=== PATIENT | male | born 1945 | race Caucasian/White ===

== ENCOUNTER 2024-04-18 09:07 | Outpatient (CLI) | payer MEDICARE, OTHER, SELFPAY ==
--- NOTE | 2024-04-18 09:21 | ECG_ITS ---
Test Date: 2024-04-18 09:39:13 Measurements Intervals [place] Rate: 49 P: 62 VA: 187 QRS: 73 QRSD: 104 T: 66 QT: 418 QTc: 380 Interpretive Statements SINUS BRADYCARDIA No previous ECG available for comparison Electronically Signed On 04-21-2024 15:01:20 [employer] by Marshal Diaz M.D.
== END 2024-04-18 09:08 | disposition home or self-care (01) ==
PROVIDERS: PCP Physician Assistant Medical; Visit Provider Surgery
DX: I10 Essential (primary) hypertension (principal); Z01.818 Encounter for other preprocedural examination; K40.90 Unilateral inguinal hernia, without obstruction or gangrene, not specified as recurrent
CPT/HCPCS: 36415; 86850; 86900; 86901; 93005

== ENCOUNTER 2024-04-25 00:36 | Day surgery (SDC) | payer MEDICARE, OTHER, SELFPAY ==
[2024-04-10 14:40] VITALS: BMI 26.4
--- NOTE | 2024-04-10 15:11 | PC.NURSE ---
Report to the Outpatient Waiting Room, entrance under the green pavilion located off [facility], at time __6:00AM on date __04/25/24 . Planned Procedure Time: __7:30AM .? Time changes happen often and if your time is changed the preop area will call you the afternoon before. - You and your visitor will be asked to self-screen and do not enter if you have any COVID symptoms. Please call surgeon if you need to reschedule. - A mask is optional within the hospital at this time. Patients may have clear liquids (water, carbonated beverages, clear teas, apple juice) until 3 hours prior to surgery (4:30AM)with a maximum of 20 ounces. - No food from midnight until time of surgery and no smoking. This includes no chewing gum, candy or mints. Take only the following medications with a SIP of water on the morning of surgery: METOPROLOL, MORNING EYE DROPS DO NOT STOP ANY OF YOUR OTHER PRESCRIPTION MEDICATIONS PRIOR TO SURGERY EXCEPT THE FOLLOWING Medications to discontinue per physician ____HOLD ALL VITAMINS/SUPPLEMENTS 3 DAYS PRE-OP PER ANESTHESIA Date to take last dose____04/21/24 Please no make-up, nail lithuanian, hairspray, perfume, deodorant, or body powder the day of surgery.? No jewelry (including any body piercings) or valuables the day of surgery, leave them at home.? Please take a shower or bath the night before, or the morning of, surgery with an antibacterial soap.? Wear comfortable, loose fitting clothing.? Children are encouraged to wear pajamas. - Jewelry must be removed prior to entering the operating room.? Rings and piercings that are not removed may be cut off. - The hospital will not accept responsibility for valuables.? - Please leave all valuables, including medications, at home the day of surgery. If you are going home after surgery, a licensed team driver must drive you home.? - NO public transportation without another adult if you receive anesthesia. - We recommend that an adult stay with you for 24 hours following discharge. - We also recommend that you do not drive, make important decision, drink alcoholic beverages, or take any drugs that were not prescribed by your health care provider for at least 24 hours after your discharge time. Follow any additional instructions given to you from your surgeon. Telephone instructions given to ___PATIENT and asked if any additional questions and then verbalized understanding. Patient advised to call surgeon office or pre surgery nurse liaison [phone] if any additional questions.
[2024-04-25] VITALS (12 sets, daily range): BP systolic 103–172; BP diastolic 53–111; PULSE 50–83; RESP 10–18; TEMP 36.1; O2SAT 97–100
[2024-04-25] MEDS: LACTATED RINGERS 1,000 ML 30 ML IV CONT ×3 (06:40→11:40)
[2024-04-25] MEDS: ACETAMINOPHEN 500 MG TABLET 1000 MG PO (06:50)
[2024-04-25] MEDS: KETOROLAC 15 MG/ML VIAL (*BKC) IV PUSH (06:50)
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
--- NOTE | 2024-04-25 07:25 | WPDHPUPDATE1 ---
History and Physical Update Update Date/Time: 04/25/24 07:25 History and Physical has been reviewed, including an updated exam of the patient. There are NO changes in the patient's condition. Risks, benefits, and alternatives have been discussed and questions answered. Patient agrees to proceed with procedure.
[2024-04-25] MEDS: ceFAZolin 2 GM/D5W 50 ML 2 GM/50 ML BAG IVPB (07:34)
[2024-04-25] MEDS: LIDO 1%/EPINEPHRINE 1:100,000 50 ML VIAL 30 ML INFILTRATE (08:01)
[2024-04-25] MEDS: BUPivacaine HCL 0.5% 10 ML AMP 30 ML INFILTRATE (08:01)
--- NOTE | 2024-04-25 09:46 | P.OP_ITS ---
Procedure Note - Detailed Date of Procedure 04/25/24 Pre-op Diagnosis Reducible left inguinal hernia Post-op Diagnosis Same Procedure Performed Robotic assisted laparoscopic left inguinal hernia repair with Bard 3D mid weight mesh. Surgeon Dorian La MD Geology Faculty Member SORIN [facility] Anesthesia General Indications Patient is a 78-year-old gentleman who many many years ago had 8 open right inguinal hernia repair. He has not had any problems with that side. He most recently complained of having a bulge in increasing pain in the left groin region. On exam he was found have reducible left inguinal hernia. He presents now for a robotic assisted laparoscopic left inguinal hernia repair with Bard 3D mid weight mesh. Findings Patient had a large reducible indirect left inguinal hernia. He had some adhesions on the right side from his prior open inguinal hernia repair. No incarcerated contents within the left inguinal hernia sac. Description of Procedure After informed consent was obtained patient was brought to the operating room was placed supine position and then general endotracheal anesthesia was administered. The abdomen and bilateral groin regions were then prepped and draped usual sterile fashion. A time-out was then performed correctly identifying the patient as well as the procedure to be performed. Site marking was verified he was given perioperative IV antibiotics. First started by entering the abdomen left upper quadrant utilizing a 5mm Optiview port. Once inside the abdomen insufflated to adequate pneumoperitoneum of 15mmHg of CO2. Looking to lower portions of the abdomen the left side was completely free of adhesions. The right side however had some adhesions of the omentum to the right lateral abdominal wall right lower quadrant. Some of these adhesions and would need to be taken down to place my right-sided robotic trocar port. I then placed a 8mm by periumbilical trocar port under direct visualization. Another 8mm left lateral abdominal wall trocar port was then placed. Then working with these 2 ports I utilized standard laparoscopic jacqueline to perform adhesiolysis of the omentum off of the right lateral abdominal wall until felt I could safely place a robotic port in the right side of the abdomen. I then placed that 8mm right-sided abdominal wall port under direct visualization without difficulty. Patient was then placed in 15degree head-down Trendelenburg position. I then had [employer] robot brought to the patient's right side and then it was docked in place. The robotic arms were then attached robotic ports. Robotic instruments were then advanced into the abdomen under direct visualization. I then scrubbed out the procedure sent down at the robotic console to perform the dissection. I 1st started by making a preperitoneal flap starting across the lower left abdominal wall and extending it towards the left anterior superior iliac spine. I dissected this preperitoneal space and divided the left side of the median umbilical ligament the left side of the bladder down. I dissected distally to the pubic tubercle dissected down into the space of Retzius for couple cm. I dissected across the midline to the right side the pubic symphysis. The patient had a large indirect inguinal hernia. There was no incarcerated contents within the hernia sac. I then continued my dissection laterally and dissected peritoneum off the inferior epigastric vessels. The large indirect inguinal hernia sac was then dissected out of the internal ring and the inguinal canal it from the robotic dissection. Once the end of the sac was identified I then everted the sac and continued to dissect all the cord adhesions off of the sac. The cord was without damaging the vas deferens or testicular vessels. I then dissected the peritoneum off of the psoas muscle proximally until I felt that mesh could be placed without rolling up the proximal edge of the mesh was pulling up the peritoneum. I then measured and felt that a piece of Bard 3D mid weight mesh measuring [id number] would be appropriate for the repair. This mesh oriented for the left side was then placed into the abdomen through the previously placed 10mm left upper quadrant trocar port site which was switched out to at the beginning of the procedure. The mesh was then laid out nicely in the disc space covering the left pubic tubercle and extending down the space of Retzius. The cover the femoral space as well as the direct space and the dilated internal ring during the home myopectineal orifice with wide overlap. I then secured the mesh medially with some interrupted 2-0 Vicryl sutures to tissues around the pubic tubercle. Laterally the mesh was secured to the muscle anterior medial to the left anterior superior iliac spine. Another suture was placed in the potential direct space to further secure the mesh to this area. The mesh laid out very nicely with no tension. I then closed the peritoneal flap by placement a running 2-0 absorbable V lock suture. There were no holes in the peritoneum to close. At this point I then did all the bowel and the area of adhesiolysis on the right side of the abdomen was hemostatic. There was no evidence of bowel injury. I then scrubbed back into the procedure and had the robotic instruments removed from the abdomen and the robot undocked from the patient's bedside. I then proceeded to 0 Vicryl suture transfascially with a suture assist device under direct visualization to close the 8mm periumbilical trocar port and a 10mm left upper quadrant trocar port. All the ports were then removed under direct visualization the abdomen was allowed to decompress. Those 2 transfascial sutures were then tied down to close the fascial defect. Port sites were then irrigated with sterile saline solution hemostasis was good. I then closed all the port sites at the skin level utilizing a running subcuticular 4-0 Monocryl suture. The incisions were then cleaned and skin glue was applied. The patient tolerated the procedure well no complications. All sponges, needles, and instrument counts were correct at the end procedure. EBL was _25__cc. The patient was awakened and taken to recovery in stable and satisfactory condition. Implants Bard 3D mid weight mesh oriented for a left groin region measuring [id number] placed in the preperitoneal plane. Estimated Blood Loss 25 Drains No Packing No Pathology None sent Complications No immediate complications Condition Stable Disposition PACU [facility] Billing Surgery - Charge Forward: Surgery Billing
[2024-04-25] MEDS: fentaNYL CITRATE INJ (*CRX) 100 MCG/2 ML VIAL 25 MCG IV PUSH (11:02)
== END 2024-04-25 12:50 | disposition home or self-care (01) ==
PROVIDERS: PCP Physician Assistant Medical; Visit Provider Surgery
PROC: 8E0Y4CZ Robotic Assisted Procedure of Lower Extremity, Percutaneous Endoscopic Approach (ICD-10-PCS; CPT 49650; principal; 2024-04-25 07:30)
DX: K40.90 Unilateral inguinal hernia, without obstruction or gangrene, not specified as recurrent (principal); K66.0 Peritoneal adhesions (postprocedural) (postinfection); E78.5 Hyperlipidemia, unspecified; I10 Essential (primary) hypertension; I25.10 Atherosclerotic heart disease of native coronary artery without angina pectoris; E55.9 Vitamin D deficiency, unspecified; Z79.82 Long term (current) use of aspirin; Z98.890 Other specified postprocedural states; Z95.5 Presence of coronary angioplasty implant and graft; Z87.891 Personal history of nicotine dependence
CPT/HCPCS: 49650; S2900; A9270; C1781; J0690; J1100; J1171; J1596; J1885; J2003; J2004; J2405; J2704; J3010; J7030; J7120